=== PATIENT | female | born 1955 | race Caucasian/White ===

== ENCOUNTER 2024-06-01 14:00 | Outpatient (CLI) | payer MEDICARE, OTHER, SELFPAY ==
--- OUTSIDE RECORDS SUMMARY | 2024-06-01 15:42 | XMS_ITS | Referral Summary ---
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 Social History Tobacco Use Types Packs/Day Years Used Date Smoking Tobacco: Never Smokeless Tobacco: Never Tobacco Cessation:Counseling Given: Not Answered Personal Safety Answer Date Recorded Getting School Help Needed Not on file 04/24 Comments No Sex and Gender Information Value Date Recorded Sex Assigned at Not on file 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 Gender Identity Not on file Sexual Orientation Not on file Last Filed Vital Signs Vital Sign Reading Time Taken Comments Blood Pressure 183/113 09/26/2020 8:18 AM CDT Pulse 89 09/26/2020 8:18 AM CDT Temperature 36.6 C (97.9 F) 09/22/2020 11:48 AM CDT Respiratory Rate 16 09/22/2020 11:48 AM CDT Oxygen Saturation 96% 09/22/2020 11:48 AM CDT Inhaled Oxygen Concentration - - Weight 85.7 kg (189 lb) 07/11/2022 7:55 AM CDT Height 167.6 cm (5' 6 ) 07/11/2022 7:55 AM CDT Body Mass Index 30.51 07/11/2022 7:55 AM CDT Plan of Treatment Not on file Procedures Procedure Name Priority Date/Time Associated Diagnosis Comments SCREENING MAMMOGRAM BILATERAL W ISMAEL Schedule Routine, Read Routine (OP Routine) 09/17/2023 10:37 AM CDT Screening mammogram, encounter for from Last 3 Months or Most Recently Relevant to Health Maintenance Results * Screening Mammogram Bilateral W Ismael (09/17/2023 10:37 AM CDT) Anatomical Region Laterality Modality Breast Bilateral Mammography Narrative 09/17/2023 12:38 PM CDT Mammogram Technique: Bilateral Digital Breast Tomosynthesis, Bilateral C-view 2D Screening mammogram. Views obtained: bilateral craniocaudal and bilateral mediolateral oblique. Computer Aided Detection was performed. Mammogram Findings: The present examination has been compared to prior imaging studies performed at [facility] on 12/02/2019, 05/16/2021 and 07/14/2022. There are scattered areas of fibroglandular density. There is no suspicious abnormality in either breast. Impression: There is no mammographic evidence of malignancy. Annual screening mammography is recommended. OVERALL FINAL ASSESSMENT: BI-RADS CATEGORY 1: Negative. Procedure Note Carlene Weir MD - 09/17/2023 Mammogram Technique: Bilateral Digital Breast Tomosynthesis, Bilateral C-view 2D Screening mammogram. Views obtained: bilateral craniocaudal and bilateral mediolateral oblique. Computer Aided Detection was performed. Mammogram Findings: The present examination has been compared to prior imaging studies performed at [facility] on 12/02/2019, 05/16/2021 and 07/14/2022. There are scattered areas of fibroglandular density. There is no suspicious abnormality in either breast. Impression: There is no mammographic evidence of malignancy. Annual screening mammography is recommended. OVERALL FINAL ASSESSMENT: BI-RADS CATEGORY 1: Negative. us Self Screening Mammogram IMG MAMMO PROCEDURES Fi nal Result from Last 3 Months or Most Recently Relevant to Health Maintenance Insurance MEDICARE [facility] MEDICARE [facility] MEDICARE [facility] Member Subscriber Plan / Payer (Ef fective 2018-Present) Name:Roselia Chandra Relation to Subscriber:Self Name:Queenie Chandrahlgera Dewitt Payer ID:[id number] Group ID:Not on file Type:Enish Address: [address] [place] [id number] Advance Directives For more information, please contact: [phone] * Full Code (Latest Code Status on File) Date Activated Date Inactivated Comments 09/22/2020 1:45 AM 09/22/2020 4:51 PM Care Teams Panel Assembler Relationship Specialty Start Date End Date No, Physician PCP - General 07/17/23
--- OUTSIDE RECORDS SUMMARY | 2024-06-01 15:42 | XMS_ITS | Continuity of Care Document ---
Author Organization [facility] Address [address] [place] [address] Phone Care Team Providers Care Farm Management Agent Name Role Phone Eric Mckeon MD Unavailable Unavailable Allergies, Adverse Reactions, Alerts Substance Reaction Status Criticality ONDANSETRON HCL Active No Informati on Medications Medication Instructions Dosage Effective Dates (start - stop) Status Comments hydrocodone 5 mg-acetaminophen 325 mg tablet take 1 tablet by oral route every 6 hours as needed for post op pain - Active ondansetron 8 mg disintegrating tablet take 1 tablet by oral route every 8 hours prn nausea and place on top of the tongue where it will dissolve, then swallow - Active meloxicam 15 mg tablet take 1 tablet by oral route every day 1 po daily 15 MG - Active Percocet 5 mg-325 mg tablet take 1 tablet by oral route every 8 hours as needed for post op pain - Active Lyrica 75 mg capsule take 1 capsule by oral route qhs - Active lisinopril 5 mg tablet - Active Procedures Procedure Date BMI Documented Above Normal Limit F/U Pl an Doc X-ray exam knee, 1 or 2 views X-ray exam both knees, standing 024 Office/outpatient visit,est, mod Nov-22- 2024 X-ray exam knee, 1 or 2 views 7 X-ray exam both knees, standing 017 Office/outpatient visit,est, mod 2016 X-ray exam knee, 1 or 2 views 7 Global/Postop followup visit Disability Form X-ray exam knee, 3 views Global/Postop followup visit Disability Form Disability Form X-ray exam knee, 1 or 2 views 4 X-ray exam both knees, standing 014 Office/outpatient visit,est, mod 2013 X-ray exam knee, 1 or 2 views 4 Office/outpatient visit,new, mod 2011 X-ray exam of knee, 1 or2 views 012 X-ray exam of knee, 1 or2 views 012 X-ray exam of both knees, standing Advance Directives Directive Yes / No Effective Date File Name No Information Encounters Encounter Description Practice Location Reason(s) For Visit Diagnoses Date Provider Providers Copied on Encounter [facility], [address], [id number], tel:[phone] [facility] No Information 5 Mike Reyes. [address], [id number], [place]. tel:[phone] [facility], [address], [id number], [place] tel:[phone] [facility] Presence of right artificial knee joint 5 Mike Reyes. [address] [facility], [address] [address], [place], [place], [id number], [place]. tel:[phone] Office/outpa tient visit,est, mod [facility], [address], [id number], tel:[phone] [facility] right Sided Knee Pain (chief complaint) Unilateral primary osteoarthritis , right knee 4 Mike Reyes. [address] [facility], [address] [address], [place], [place], [id number], [place]. tel:[phone] Referring Provider: Eric Holguin, [address] [facility] [address] [facility], [place], [address] . tel:[phone] Office/outpa tient visit,est, mod [facility], [address] [address], [place], [place], [id number], [place] tel:[phone] [facility] Left knee (chief complaint) Right knee (chief complaint) Presence of left artificial knee jointPain in right kneeUnilateral primary osteoarthritis , right knee 7 Kristen Christine. [address] [address], [place], [place], [id number], [place]. tel:[phone] [facility], [address] [address], [place], [place], [id number], [place] tel:[phone] [facility] Presence of left artificial knee joint 5 Kristen Christine. [address] [address], [place], [place], [id number], [place]. tel:[phone] [facility], [address] [address], [place], [place], [id number], [place] tel:[phone] [facility] No Information 5 Kristen Christine. [address] [address], [place], [place], [id number], [place]. tel:[phone] [facility], [address], [id number], [place] tel:[phone] [facility] Knee replacement status 5 Kristen Christine. [address] [address], [place], [place], [id number], [place]. tel:[phone] [facility], [address] [place] [address], [id number], [place] tel:[phone] [facility] No Information Sep-0 2- 5 Kristen Christine. [address] [address], [place], [place], [id number], [place]. tel:[phone] [facility], [address] [address], [place], [place], [id number], [place] tel:[phone] [facility] Knee replacement status 5 Kristen Christine. [address] [address], [place], [place], [id number], [place]. tel:[phone] [facility], [address] [place] [address], [place], [place], [id number], [place] tel:[phone] [facility] LOC PRIM OSTEOART-L/LEG Aug-0 8 5 Kristen Christine. [address], [id number], [place]. tel:[phone] [facility], [address], [id number], [place] tel:[phone] [facility] No Information 0 5 Kristen Christine. [address] [address], [place], [place], [id number], [place]. tel:[phone] Office/outpa tient visit,est, [facility], [address], [id number], [place] tel:[phone] [facility] JOINT PAIN-L/LEGLOC PRIM OSTEOART-L/LEG Nov- 4 Kristen Christine. [address], [id number], [place]. tel:[phone] Office/outpa tient visit,new, [facility], [address], [id number], [place] tel:[phone] [facility] LOC PRIM OSTEOART-L/LEG JOINT PAIN-L/LEG 2 No Information Family History Family Member Type Diagnosis Age At Onset Father Problem (finding) Cancer, unknown Father Problem (finding) gout Immunizations Vaccine Date Status Comments Pneumo (2 yrs or older)(PPV) not administered Source: Source Unspe cified influenza, injectable, quadrivalent, (3 years or older) administered Note: per patient ; Source: Source Unspecified Flu (split) (3 yrs or older) administered Note: patient report ed ; Source: Source Unspecified Payers Payer name Insurance type Covered libertarian ID Authoriza tion(s) Medicare [place] W[place] Part B [id number] [facility] [id number] Social History Type Description Quantity Date Captured Comments Alcohol Use Details Unknown Caffeine Use Details Unknown Tobacco Use Status No Information Smoking Status No Information Sex Female Chief Complaint And Reason For Visit No Information Reason For Referral Reason For Referral No Information Plan Of Treatment Date Type Action Status Referral Ordered: X-ray exam knee, 1 or 2 views RT knee ordered Referral Ordered: X-ray exam both knees, standing Bilateral ordered Referral Ordered: X-ray exam knee, 1 or 2 views Bilateral ordered Referral Ordered: X-ray exam knee, 3 views LT ordered Referral Ordered: X-ray exam both knees, standing Bilateral knee ordered Referral Ordered: X-ray exam knee, 1 or 2 views Bilateral knee ordered Appointment Roselia Chandra BOOKED Appointment Roselia Chandra BOOKED Patient Education Body Mass Index: After Your Visit completed Patient Education Knee Arthritis: After Y our Visit completed History Of Present Illness Encounter Date Complaint History Of Prese nt Illness right Sided Knee Pain Roselia walker resents with right knee pain Left knee Patient comes in today for follow up of her left total knee replacement Right knee Patient comes in today for follow up of her right knee pain Functional Status Date Functional Assessmen t No Information Instructions Date Instruction Additional Infor mation No Information Assessments Type Assessment Date No Information Patient Care Teams Name Effective Dates (start - stop) Status Members No Information
--- OUTSIDE RECORDS SUMMARY | 2024-06-01 15:42 | XMS_ITS | Clinical Summary ---
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 Medical History Medical History Date Comments Hypertension HL (hearing loss) Social History Tobacco Use Types Packs/Day Years Used Date Smoking Tobacco: Never Smokeless Tobacco: Never Tobacco Cessation:Counseling Given: Not Answered Personal Safety Answer Date Recorded Getting School Help Needed Not on file 04/24 Comments No Sex and Gender Information Value Date Recorded Sex Assigned at Not on file 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 Gender Identity Not on file Sexual Orientation Not on file Obstetrics History Last Filed Vital Signs Vital Sign Reading [...] 07/11/2022 7:55 AM CDT Plan of Treatment Health Maintenance Due Date Last Done Comments Colon Cancer Screening-Colonoscopy 1955 Depression Screening 1955 Hepatitis C Screening 1955 Osteoporosis Screening-Bone Density Scan 1954 DTaP/Tdap/Td Vaccine (1 - Tdap) 1965 Hepatitis B Screening 01/21/1972 Pneumococcal vaccine 65+ (1 of 1 - PCV) 01/21/2004 Zoster Vaccine (1 of 2) 01/21/2004 Well Visit 65+ 2019 Fall Risk Assessment 09/22/2021 09/22/2020 Covid-19 Vaccine (2 - 2023-2 5 season) 2023 11/26/2020 Breast Cancer Screening-Mammogram 09/16/2024 09/17/2023, 07/14/2022, 05/16/2021, Additional history exists Influenza Vaccine (Season Ended) 2024 12/19/19 19 Procedures Procedure Name Priority Date/Time Associated Diagnosis [...] compared to prior imaging studies performed at [facility] on 12/02/2019, 05/16/2021 and 07/14/2022. There are [...] compared to prior imaging studies performed at [facility] on 12/02/2019, 05/16/2021 and 07/14/2022. There are scattered areas of fibroglandular density. There is no suspicious abnormality in either breast. Impression: There is no mammographic evidence of malignancy. Annual screening mammography is recommended. OVERALL FINAL ASSESSMENT: BI-RADS CATEGORY 1: Negative. us Self Screening Mammogram IMG MAMMO PROCEDURES Fi nal Result from Last 3 Months or Most Recently Relevant to Health Maintenance Insurance MEDICARE [facility] MEDICARE [facility] [place] [address] MEDICARE [facility] Advance Directives For more information, please contact: [phone] * Full Code (Latest Code Status on File) Date Activated Date Inactivated Comments 09/22/2020 1:45 AM 09/22/2020 4:51 PM Care Teams Living Advisor Relationship Specialty Start Date End Date No, Physician PCP - General 07/17/23
[2024-06-01 19:44] LABS: Add Urine Microscopic? YES; Appearance Urine Clear (Clear); Bacteria Urine 2+ /hpf; Bilirubin Urine Negative (Negative); Blood Urine Negative (Negative); Color Urine Yellow (Yellow); Glucose Urine UA Negative (Negative); Ketones Urine Negative (Negative); Leukocyte Esterase Ur Trace LEU/UL (Negative); Nitrate Urine Negative (Negative); Non Pathogenic Casts 0-2; Protein Urine Negative (Negative); RBC Urine 0-2 /hpf (0-2); Specific Grav Ur 1.009 (1.001-1.035); Squamous Epithelial Cell Urine None Seen /hpf (Few); Urobilinogen Urine 0.2 mg/dL (<2.0); WBC Urine 0-5 /hpf (0-3)
== END 2024-06-01 14:01 | disposition home or self-care (01) ==
PROVIDERS: PCP Nurse Practitioner Adult Health; Visit Provider Nurse Practitioner Adult Health
DX: R39.9 Unspecified symptoms and signs involving the genitourinary system (principal)
CPT/HCPCS: 81001; 87077; 87086; 87186

== ENCOUNTER 2024-08-09 12:18 | Outpatient (CLI) | payer MEDICARE, OTHER, SELFPAY ==
--- OUTSIDE RECORDS SUMMARY | 2024-08-09 12:50 | XMS_ITS | Continuity of Care Document ---
Author Organization [facility] Address [address] [place] [address] Phone Care Team Providers Care Maple Syrup Maker Name Role Phone Mike GRAHAM MD, Eric Unavailable Unavailable Allergies, Adverse Reactions, Alerts Substance Reaction Status Criticality ONDANSETRON HCL Active No Informati on Medications Medication Instructions Dosage Effective Dates (start - stop) Status Comments hydrocodone 5 mg-acetaminophen 325 mg tablet take 1 tablet by oral route every 6 hours as needed for post op pain - Active meloxicam 15 mg tablet take 1 tablet by oral route every day 1 po daily 15 MG - Active Percocet 5 mg-325 mg tablet take 1 tablet by oral route every 8 hours as needed for post op pain - Active Lyrica 75 mg capsule take 1 capsule by o ral route qhs - Active lisinopril 5 mg tablet - Active Procedures Procedure Date BMI Documented Above Normal Limit F/U Pl an Doc X-ray exam knee, 1 or 2 views 4 X-ray exam both knees, standing 024 Office/outpatient visit,est, mod 2023 X-ray exam knee, 1 or 2 views [...] Date Provider Providers Copied on Encounter [facility], [address], [id number], tel:[phone] [facility] No Information 5 Mike Reyes. [address], [id number], [place]. tel:[phone] [facility], [address], [id number], [place] tel:[phone] [facility] No Information 5 Mike Reyes. [address] [address], [place], [place], [id number], [place]. tel:[phone] [facility], [address], [id number], [place] tel:[phone] [facility] Presence of right artificial knee joint 5 Mike Reyes. [address] [facility], [address] [address], [place], [place], [id number], [place]. tel:[phone] Office/outpa tient visit,est, mod [facility], [address] [address], [place], [place], [id number], [place] tel:[phone] [facility] right Sided Knee Pain (chief complaint) Unilateral primary osteoarthritis , right knee 4 Mike Reyes. [address] [address], [place], [place], [id number], [place]. tel:[phone] Referring Provider: Eric Mckeon MD S, [address] [place] [address], [place], [address] . tel:[phone] Office/outpa tient visit,est, mod [facility], [address] [address], [place], [place], [id number], [place] tel:[phone] [facility] Left knee (chief complaint) Right knee (chief complaint) Presence of left artificial knee jointPain in right kneeUnilateral primary osteoarthritis , right knee 7 Kristen Christine. [address] [address], [place], [place], [id number], [place]. tel:[phone] [facility], [address] [address], [place], [place], [id number], [place] tel:[phone] [facility] Presence of left artificial knee joint 5 Kristen Christine. [address], [id number], [place]. tel:[phone] [facility], [address] [address], [place], [place], [id number], [place] tel:[phone] [facility] No Information 5 Kristen Christine. [address], [id number], [place]. tel:[phone] [facility], [address], [id number], [place] tel:[phone] [facility] Knee replacement status 5 Kristen Christine. [address] [address], [place], [place], [id number], [place]. tel:[phone] [facility], [address] [address], [place], [place], [id number], [place] tel:[phone] [facility] No Information Sep-0 2-201 5 Kristen Christine. [address] [facility], [address] [address], [place], [place], [id number], [place]. tel:[phone] [facility], [address] [address], [place], [place], [id number], [place] tel:[phone] [facility] Knee replacement status 1 5 Kristen Christine. [address] [place] [address], [id number], [place]. tel:[phone] [facility], [address] [place] [address], [id number], [place] tel:[phone] [facility] LOC PRIM OSTEOART-L/LEG Riccardo-0 8-201 5 Kristen Christine. [address] [facility], [address] [address], [place], [place], [id number], [place]. tel:[phone] [facility], [address] [place] [address], [id number], [place] tel:[phone] [facility] No Information Apr-0 7-201 5 Kristen Christine. [address] [place] [address], [id number], [place]. tel:[phone] Office/outpa tient visit,est, [facility], [address] [address], [place], [place], [id number], [place] tel:[phone] [facility] JOINT PAIN-L/LEGLOC PRIM OSTEOART-L/LEG Oct-3 1-201 4 Kristen Christine. [address] [facility], [address] [address], [place], [place], [id number], [place]. tel:[phone] Office/outpa tient visit,new, [facility], [address] [place], [place], [id number], [place] tel:[phone] [facility] LOC PRIM OSTEOART-L/LEG JOINT PAIN-L/LEG 2 [...] name Insurance type Covered libertarian ID Authoriza tiairam(s) [place] Part B [id number] [facility] [id number] Social History Type Description Quantity Date Captured [...] nt Illness right Sided Knee Pain Roselia hill with right knee pain Left knee Patient [...]
--- OUTSIDE RECORDS SUMMARY | 2024-08-09 12:50 | XMS_ITS | Data Portability ---
Author Organization [place] [facility], Main Office Address [address] [place] [address] Assessment No assessment recorded. Plan of Treatment Reminders Order Date Submit Date Provider Last Modified By Organization Details Last Modified Time Details Appointments None recorded. Lab noninvasive colorectal cancer DNA + occult blood screening, QL, stool 2023 024 [email or web address] 2 [facility], [address], [place], [address], 09:51:30 Referral None recorded. Procedures None recorded. Surgeries None recorded. Imaging None recorded. Medication Orders amlodipine 2.5 mg tablet 2023 024 [email or web address] 200 [facility] #[id number], [address], [place], [address], 11:09:49 Patient TargetsNo targets recorded. Patient Instructions Encounter Date Encounter Id Patient Instructions Last Modified By Organization Details Last Modified Time 12/10/2023 [id number] dementia rating scale-2* [email or web address] Not available 12/10/2023 12:42:10 alcohol misuse* [email or web address] Not available 12/10/2023 12:42:16 depression screening* [email or web address] Not available 12/10/2023 12:42:21 multi-dimensiona l health assessment questionnaire* [email or web address] Not available 12/10/2023 12:42:01 Personalized [facility] lt Plan and Screening Recommendations Advance Directives - Do you have one? Yes I have no recommendations Advance Directives - Do we have your advance directive on file in your health record? I have no recommendations Primary Prevention/Interven tion (prevents or decreases the chance of common diseases from occurring) Smoking Risk: Non Smoker I have no recommendations Alcohol Misuse Screening: Negative I have no recommendations Weight: Overweight try to lose 10% of your body weight Physical activity: Appropriate physical activity I have no recommendations Nutrition: Average Eat HEart Healthy Diet Fall Risk (screened today): Low I have no recommendations Vaccines Pneumococcal: No further needed Influenza: Your next one in the fall of this year Chronic Disease Risks Stroke: Low Risk I have no recommendations Heart Attack: Low risk I have no recommendations Clogging of the Arteries: Low risk I have no recommendations Diabetes: Low Risk I have no recommendations Secondary Prevention/Interven tion (detects treatable diseases before they may cause symptoms, disability, or ) Breast Cancer Screening with mammogram: No screening necessary Cervical/Uterine/Ov netta Cancer Screening: No screening necessary Osteoporosis Screening: No screening necessary Date Screening Last Performed: Colon Cancer Screening: Cologuard (DNA stool test) No screening necessary Date Screening Last Performed: Eye Disease Screening: No Eye exam necessary Dementia Risk: Low I have no recommendations Depression Screening: Negative I have no recommendations Not available 12/10/2023 10:42:04 recheck BP on ow n , call us if still high Not available 01/04/2024 17:12:57 Reason for Referral None Reported. Results Created Date Observation Date Name Description Value Unit Range Abnormal Flag Note LastModifiedBy Organization Detail LastModifiedTime 10/02/19 21 10/01/2020 BASIC METAB OLIC PANEL sodium 137 mmol/ L 137-14 5 Not Available [facility] (Lab) [address] [place], [address], 10/01/2020 20:12:55 10/02/19 21 10/01/2020 BASIC METAB OLIC PANEL potassium 4.1 mmol/ L 3.5-5. 1 Not Available [facility] (Lab) [address] [place], [address], 10/01/2020 20:12:55 10/02/19 21 10/01/2020 BASIC METAB OLIC PANEL chloride 99 mmol/ L 98-107 Not Available [facility] (Lab) [address] [place], [address], 10/01/2020 20:12:55 10/02/19 21 10/01/2020 BASIC METAB OLIC PANEL carbon dioxide 30 mmol/ L 22-30 Not Available [facility] (Lab) [address] [place], [address], 10/01/2020 20:12:55 10/02/19 21 10/01/2020 BASIC METAB OLIC PANEL agap 12.1 mmol/ L 14-22 low Not Available [facility] (Lab) [address] [place], [address], 10/01/2020 20:12:55 10/02/19 21 10/01/2020 BASIC METAB OLIC PANEL glucose 80 mg/dL 70-99 Not Available [facility] (Lab) [address] [place], [address], 10/01/2020 20:12:55 10/02/19 21 10/01/2020 BASIC METAB OLIC PANEL BUN 14 mg/dL 8-19 Not Available [facility] (Lab) [address] [place], [address], 10/01/2020 20:12:55 10/02/19 21 10/01/2020 BASIC METAB OLIC PANEL creatinine 0.89 mg/dL 0.66-1 .25 Not Available [facility] (Lab) [address] [place], [address], 10/01/2020 20:12:55 10/02/19 21 10/01/2020 BASIC METAB OLIC PANEL GFR >60 Refer ence Range : [facility] ge GFR Healt hy Adult : >60 mL/mi n/1.7 3 m2 Chron ic Kidne y Disea se: 15-60 mL/mi n/1.7 3 m2 Kidne y Failu re: <15/m L/min /1.73 m2 www.n iddk. nih.g ov MDRD study equat ion hasn' t been valid ated in child carlitos <18 yrs of age, pregn ant women , the elder ly >85 yrs of age, or in some racia l or ethni c subgr oups, suc as Hispa nics. Outsi de the valid ated zhen eters , estim ated GFR is less accur ate requi ring clini michelle judgm ent on a case by case basis . Clini michelle inter preta tion for other races and ages must be made by the clini darin . Futhe rmore , any of th e limit ation s with the use of serum creat inine relat ed to nutri raven l statu s o r medic ation usage hasn' t accou nted for the MDRD Study equat ion. For perso ns < 18 yrs of age, a pedia tric GFR calcu lator can be locat ed on the [facility] websi te: https ://ismael w.carlos mack.o rg/pr ofess ional s/kdo qi/gf r_cal culat or Not Available [facility] (Lab) [address] [place], [address], 10/01/2020 20:12:55 10/02/19 21 10/01/2020 BASIC METAB OLIC PANEL calcium 9.8 mg/dL 8.4-10 .2 Not Available [facility] (Lab) [address] [place], [address], 10/01/2020 20:12:55 09/22/19 21 09/21/2020 CT, neck, soft tissu e, w/o contr ast No observ ation record ed. [id number] [facility] [address] [place], [address], 04/23/2022 21:14:42 05/18/19 22 05/16/2021 MAMMO , scree long, bilat eral No observ ation record ed. [id number], [address], 04/23/2022 21:14:42 Result Notes None recorded. Problems Name Problem SNOMED Code Status Onset Date Resolution Date Notes Provider Name and Address Organization Details Recorded Time Essential hypertension 65419659 Active 2018 Not Available [facility] 3 05:20:17 Dysuria 02222344 Active 2022 Not Available [facility] 3 05:20:17 Acute tonsillitis 41030793 Active 2022 Not Available [facility] 3 05:20:17 Screening for osteoporosis Active 2023 XIAO Green [address] [facility], [place], [address] , [facility] 4 11:14:27 Screening for malignant neoplasm of colon Active 2023 XIAO Green [address] [facility], [address], [place], [address] , [facility] 4 11:16:06 Problem Notes None recorded. Procedures Surgical History Date Name Laterality Status Provider Name and Address Organization Details Recorded Time 12/10/19 24 Medicare Wellness CPT Code, subsequent completed May DESHAWN Diane [facility] 12/10/2023 10:26:47 Knee Replacement completed Not Available [facility] 04/23/2022 21:13:08 Imaging Results None recorded. Procedure Notes None recorded. Medical Equipment None Reported. Allergies Allergen ID Allergen Name Allergen Category Reaction Reaction Severity Criticality Documentation Date Start Date Code Code System Note Provider Name and Address Organization Details Recorded Time 55068 Zofran medicatio n other Not available Not available 12/10/2023 72418 RxNorm prolo nged QT segme nt Maribel Sparrow RN [facility], [facility] 4 10:34:29 Medications Name Sig Start Date Stop Date Status Note LastModified by Organization Details LastModified Time amoxicillin 500 mg capsule 10/01 completed Not Available Not Available Not Available phenazopyrid ine 200 mg tablet TAKE ONE TABLET 3 TIMES DAILY 11/22 completed Not Available Not Available Not Available lisinopril 20 mg tablet TAKE 1 TABLET BY MOUTH TWICE A DAY active Not Available Not Available No t Available fluorouracil 5 % topical cream 11/22 completed Not Available Not Available Not Available Zithromax Z-Dhaval 250 mg tablet TAKE 2 TABLETS (500 MG) BY ORAL ROUTE ONCE DAILY FOR 1 DAY THEN 1 TABLET (250 MG) BY ORAL ROUTE ONCE DAILY FOR 4 DAYS 12/09 completed Not Available Not Available Not Available penicillin V potassium 500 mg tablet 11/22 completed Not Available Not Available Not Available amlodipine 2.5 mg tablet TAKE 1 TABLET BY MOUTH EVERY DAY IN THE MORNING active Not Available Not Available No t Available ciprofloxaci n 250 mg tablet Take 1 tablet twice a day by oral route for 3 days active Not Available Not Available No t Available ciprofloxaci n 500 mg tablet TAKE 1 TABLET BY MOUTH EVERY 12 HOURS FOR 5 DAYS 12/09 completed Not Available Not Available Not Available sulfamethoxa zole 800 mg-trimethop rim 160 mg tablet 11/22 completed Not Available Not Available Not Available triamterene 37.5 mg-hydrochlo rothiazide 25 mg capsule TAKE ONE CAPSULE BY MOUTH EVERY DAY 12/09 completed Not Available Not Available Not Available triamterene 37.5 mg-hydrochlo rothiazide 25 mg tablet TAKE ONE TABLET DAILY IN THE MORNING 12/09 completed Not Available Not Available Not Available methylpredni solone 4 mg tablets in a dose pack 10/01 completed Not Available Not Available Not Available Lomotil 2.5 mg-0.025 mg tablet Take 1 tablet 4 times a day by oral route as needed. active Not Available Not Available No t Available nitrofuranto in monohydrate/ macrocrystal s 100 mg capsule TAKE 1 CAPSULE EVERY 12 HOURS BY ORAL ROUTE FOR 5 DAYS. 01/08 completed Not Available Not Available Not Available Flublok Quad (PF) 180 mcg (45 mcg x 4)/0.5 mL IM syringe active Not Available Not Available Not Available Vitals Date Recorded Body mass index (BMI) Body height Oxygen saturation Oxygen saturation in Arterial blood by Pulse oximetry Heart rate Body temperature Body weight Systolic blood pressure Diastolic blood pressure Provider Name and Address Organization Details Last Updated DateTime 3 30.8 kg/m2 167.64 cm 98 % 98 % 77 /min 97.8 [degF] 00009.1 4 g 140 mm[Hg] 90 mm[Hg] Not Available [facility] 3 21:13:16 Date Recorded Body mass index (BMI) Body height Oxygen saturation Oxygen saturation in Arterial blood by Pulse oximetry Heart rate Body temperature Body weight Systolic blood pressure Diastolic blood pressure Provider Name and Address Organization Details Last Updated DateTime 1 29.9 kg/m2 167.64 cm 98 % 98 % 98 /min 97.2 [degF] 15117.5 9 g 160 mm[Hg] 90 mm[Hg] Not Available [facility] 3 21:13:16 Date Recorded Body weight Body temperature Heart rate Oxygen saturation Oxygen saturation in Arterial blood by Pulse oximetry Systolic blood pressure Diastolic blood pressure Provider Name and Address Organization Details Last Updated DateTime 4 74465.5 5 g 98.2 [degF] 73 /min 99 % 99 % 144 mm[Hg] 92 mm[Hg] Maribel Sparrow RN [place] [facility] 4 10:39:38 Date Recorded Body mass index (BMI) Body height Oxygen saturation Oxygen saturation in Arterial blood by Pulse oximetry Heart rate Body temperature Body weight Systolic blood pressure Diastolic blood pressure Provider Name and Address Organization Details Last Updated DateTime 2 29.7 kg/m2 167.64 cm 97 % 97 % 73 /min 98.2 [degF] 47126 g 130 mm[Hg] 80 mm[Hg] Not Available [facility] 3 21:13:16 Social History Question Answer Notes LastModified by Clarimedixizat ion Details LastModified Time Tobacco Smoking Status Never Smoker Not Available [facility] 04/23/2022 21:13:00 What Is Your Level Of Caffeine Consumption? Moderate [id number] Information not available 04/23/2022 In The 14 Days Before Symptom Onset, Have You Had Close Contact With A Laboratory-confirm ed COVID-19 While That Case Was Ill? No [id number] Information not available 04/23/2022 In The 14 Days Before Symptom Onset, Have You Had Close Contact With A Person Who Is Under Investigation For COVID-19 While That Person Was Ill? No [id number].[id number] Information not available 04/23/2022 What Type Of Diet Are You Following? REGULAR [id number].[id number] Information not available 04/23/2022 Which Illicit Or Recreational Drugs Have You Used? Marijuana [id number] Information not available 04/23/2022 What Was The Date Of Your Most Recent Tobacco Screening? 12/10/2023 Information not available 12/10/2023 Have You Ever Been Counseled For Unhealthy Alcohol Use? No [id number] Information not available 04/23/2022 Has Tobacco Cessation Counseling Been Provided? No [id number].[id number] 0968 Information not available 04/23/2022 Have You Recently Traveled Abroad? No [id number].[id number] 2463 Information not available 04/23/2022 Have You Used IV Drugs? No MIGRATION.062521 6222 Information not available 04/23/2022 Do You Have Any Dietary Restrictions? No [id number].[id number] 7213 Information not available 04/23/2022 Sex: Unknown Functional Status Question Answer Note LastModified by Organizat ion Details LastModified Time Do you use any illicit or recreational drugs? Yes [id number] Information not available 04/23/2022 Do you or have you ever used any other forms of tobacco or nicotine? No [id number] 26 Information not available 04/23/2022 What is your level of alcohol consumption? Moderate [id number].[id number] 26 Information not available 04/23/2022 What is your exercise level? Heavy [id number].[id number] 26 Information not available 04/23/2022 Mental Status None recorded. Family History Relationship Description Onset Age of this Age Resolved Age Notes LastModified by Organization Details LastModified Time Brother Malignant tumor of colon [id number] Not available 04/23/2022 21:13:08 Medical History Condition Response HEARTBURN / REFLUX Y HYPERTENSION Y Gynecological HistoryNo gynecological history recorded. Obstetrics History GPAL:G 0 P 0 0 0 0 Past Encounters Encounter ID Performer Location Encounter Start Date Encounter Closed Date Diagnosis/Indication Diagnosis SNOMED-CT Code Diagnosis ICD10 Code Diagnosis Note [id number] Codi Anderson MD [facility] Roxanne mccormack [address] [place] [address] 10/01/2020 00:00:00 10/01/2020 16:53:12 [id number] Codi Anderson MD [facility] [place]anne mccormack [address] [place] [address] 01/08/2022 00:00:00 01/08/2022 14:24:35 [id number] Codi Anderson MD [facility] Roxanne mccormack [address] [facility] [place] [address] 04/17/2022 00:00:00 04/17/2022 20:21:29 [id number] Adrian Angulo MD [facility] [address] m[address]orm[address] [facility] [place] [address] 12/10/2023 10:03:32 12/10/2023 11:11:31 Adult health examination 961217105 Z00.00 Screening for disorder 119177918 Z13.9 Essential hypertension 23607504 I10 Screening for osteoporosis 343580616 Z13.820 Screening for malignant neoplasm of colon 305559501 Z12.11 Health Concerns Section Related Observation LastModified by Organization Detai ls LastModified Time None Recorded Concern Status LastModified by Organization Details LastModified Time None Recorded Advance Directives Directive None Recorded Payers Insurance Date Sequence Insurance Name Policy Number Policy Ramirez Covered Member ID Ramirez Member ID Guarantor Name 03/01/2024 1 [place] Roselia Chandra [id number] Anita Chandra 12/10/2023 2 Risk Management Solution (MEDICARE SUPPLEMENT) Anita Chandra [id number] Anita Chandra Notes Date Note Type Note Provider Name and Address Organization Details Recorded Time 12/10/2023 text/html Had a mammogram in June at [facility] , will bring us a copy XIAO Green [address] [facility] [facility] [address], [place], [address], [place] [facility] 01/04/2024 17:13:36 OBGyn Episode No OBEpisode recorded.
--- OUTSIDE RECORDS SUMMARY | 2024-08-09 12:50 | XMS_ITS | Patient Health Record ---
[facility] Address [address] [place] [address] Care Team Providers Care Insurance Verification Specialist Name Role Phone Srinivasan Garcia Primary Care Provider [phone] Reason For Referral No Information Medications Medication SIG (Take, Route, Frequency, Duration) Notes Start Date End Date Status Lisinopril 20 MG TAKE ONE TABLET SNEHAL Y for 30 Active hydroCHLOROthiazide 25 MG TAKE ONE TABLE T DAILY for 30 Active Problems Problem Type SNOMED Code ICD Code Onset Dates Problem Status W/U Status Risk Notes Problem Essential hypertension (03457629) Unspecified essential hypertension (401.9) 0 confirmed Jaiden Problem Essential hypertension (07842527) Essential (primary) hypertension (I10) 0 confirmed Jaiden Plan Of Treatment No Information Insurance Providers Payer Name Payer Address Payer Phone Subscriber Number Group Number Insured Name Patient Relationship to Insured Coverage Start Date Coverage End Date Dustin [facility] [address] [place] [address] [id number] [place] [employer] Self - patient is the insured
--- OUTSIDE RECORDS SUMMARY | 2024-08-09 12:50 | XMS_ITS | Clinical Summary ---
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 There [...] compared to prior imaging studies performed at [facility] on 12/02/2019, 05/16/2021 and 07/14/2022. There [...] Recently Relevant to Health Maintenance [place] [address] [facility] MEDICARE [place] [address] MEDICARE [facility] Advance Directives For more information, please contact: [phone] * Full Code (Latest Code Status on File) Date Activated Date Inactivated Comments 09/22/2020 1:45 AM 09/22/2020 4:51 PM Care Teams Call Center Trainer Relationship Specialty Start Date End Date No, Physician PCP - General 07/17/23
--- OUTSIDE RECORDS SUMMARY | 2024-08-09 12:50 | XMS_ITS | Referral Summary ---
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 There [...] compared to prior imaging studies performed at [facility] on 12/02/2019, 05/16/2021 and 07/14/2022. There [...] Recently Relevant to Health Maintenance Insurance MEDICARE [facility] MEDICARE [facility] MEDICARE [facility] Advance Directives For more information, please contact: [phone] * Full Code (Latest Code Status on File) Date Activated Date Inactivated Comments 09/22/2020 1:45 AM 09/22/2020 4:51 PM Care Teams Fence Installer Foreman Relationship Specialty Start Date End Date No, Physician PCP - General 07/17/23
[2024-08-09 20:23] LABS: Add Urine Microscopic? NO; Appearance Urine Clear (Clear); Bilirubin Urine Negative (Negative); Blood Urine Negative (Negative); Color Urine Yellow (Yellow); Glucose Urine UA Negative (Negative); Ketones Urine Negative (Negative); Leukocyte Esterase Ur Negative LEU/UL (Negative); Nitrate Urine Negative (Negative); Protein Urine Negative (Negative); Specific Grav Ur 1.011 (1.001-1.035); Urobilinogen Urine 0.2 mg/dL (<2.0)
== END 2024-08-09 12:19 | disposition home or self-care (01) ==
LOC: ANHBWCLAB 12:19
PROVIDERS: PCP Nurse Practitioner Adult Health; Visit Provider Nurse Practitioner Adult Health
DX: R39.9 Unspecified symptoms and signs involving the genitourinary system (principal)
CPT/HCPCS: 81003; 87086; 87181